=== PATIENT | male | born 1970 | race Caucasian/White ===

== ENCOUNTER → 2017-04-24 | Outpatient (CLI) | payer OTHER ==
--- NOTE | 2017-04-24 21:55 | MR ---
EXAMINATION TYPE: MR knee LT wo con DATE OF EXAM: 04/24/2017 COMPARISON: NONE HISTORY: Derangement, knee internal, Left per order. Left knee pain and swelling since slipping injur y April 20 per patient. TECHNIQUE: Multiplanar, multisequence images of the knee is performed without IV contrast. FINDINGS: MEDIAL MENISCUS: There is some globular increased signal anterior horn of medial meniscus does not ex tend to articular surface. More prominent, globular signal posterior horn of medial meniscus with hermann ncated appearance posteriorly is identified, signal extends to superior articular surface. In additio n there is complex vertical tear centrally seen best coronal image 24 with signal extending to superi or and inferior articular surfaces. Medial extrusion of medial meniscus is seen. LATERAL MENISCUS: Anterior and posterior horns are intact without tear. CRUCIATE LIGAMENTS: The anterior and posterior cruciate ligaments are intact. Some increased signal d istal ACL is seen with some fanning of fibers. COLLATERAL LIGAMENTS: The medial collateral ligament and lateral collateral ligament complex are inta ct. Mild surrounding fluid signal medial collateral ligament is present. EXTENSOR MECHANISM: Visualized quadriceps and patellar tendons are intact. EFFUSION: There is partial visualization of a large suprapatellar joint effusion. POPLITEAL CYST: There is a large popliteal/cabello cyst measuring roughly 6 cm on long axis. Some septa tions are present. Some ill-defined fluid extends inferiorly suggesting leak.. TRICOMPARTMENT SPACES: There is moderate tricompartment joint space loss. There is tibial condylar sp urring seen. CARTILAGE: There is thinning of articular cartilage posterior patellar pole. No full-thickness cartil aginous loss is seen. Articular cartilage tibiofemoral articulations fairly well-maintained. BONE MARROW SIGNAL: There is heterogeneous increased T2 signal anterior distal femoral condyle latera l aspect on sagittal image 14. There is mild increased T2 signal posterior medial tibial plateau seen near sagittal image 23 and coronal image 27. OTHER: Mild diffuse subcutaneous edema is present. This is most pronounced anteriorly. IMPRESSION: 1. Complex full-thickness tear posterior horn of medial meniscus extending to involve the central champ t as detailed above. 2. Intrasubstance tearing anterior horn of medial meniscus. 3. Mild MCL sprain. 4. Myxoid degeneration ACL. 5. Large suprapatellar joint effusion. 6. Large leaking popliteal cyst. 7. 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 8. Small areas of osseous contusion involving the posterior medial tibial plateau and medial aspect o f the central anterior distal femoral lateral epicondyle.
== END | disposition home or self-care (01) ==
LOC: RADMRIMAIN 17:53
PROVIDERS: ATTEND Preventive Medicine Occupational Medicine
DX: S83.242A Other tear of medial meniscus, current injury, left knee, initial encounter (principal); S83.412A Sprain of medial collateral ligament of left knee, initial encounter; M71.22 Synovial cyst of popliteal space [Baker], left knee; M22.42 Chondromalacia patellae, left knee

== ENCOUNTER 2018-04-14 10:53 | Inpatient (IN) | payer BC, OTHER ==
--- NOTE | 2018-04-14 12:06 | ED ---
Abdominal Pain HPI - General Chief Complaint: Abdominal Pain Stated Complaint: Abd Pain Time Seen by Provider: 04/14/18 11:45 Source: patient, RN notes reviewed Mode of arrival: ambulatory Limitations: no limitations - History of Present Illness Initial Comments: This is a 39-year-old male who states he had the onset 4 days ago of lower abdominal no and left lower quadrant pain he states that sharp in nature costal he has 3-4/10 severity EKG we'll spica. This developed a fever with some sweats he denies any dysuria hematuria he states he been taking a lot of Pepto- Bismol does have dark green stool. He has no prior history of abdominal surgeries hernia repair in the past. Family history is significant for his mother having gallbladder disease and a grandmother that had colon cancer in her 80s. No other modifying factors at this time. MD Complaint: abdominal pain - Related Data Home Medications Medication Instructions Recorded Confirmed Acetaminophen Tab [Tylenol Tab] 1,000 mg PO Q6HR PRN 04/14/18 04/14/18 Bismuth Subsalicylate [Kaopectate] 524 mg PO Q4H PRN 04/14/18 04/14/18 Allergies Allergy/AdvReac Type Severity Reaction Status Date / Time No Known Allergies Allergy Verified 04/14/18 12:28 Review of Systems ROS Statement: Those systems with pertinent positive or pertinent negative responses have been documented in the HPI. ROS Other: All systems not noted in ROS Statement are negative. Past Medical History Past Medical History: No Reported History History of Any Multi-Drug Resistant Organisms: None Reported Past Surgical History: Hernia Repair, Orthopedic Surgery Additional Past Surgical History / Comment(s): sinus Past Psychological History: No Psychological Hx Reported Smoking Status: Never smoker Past Alcohol Use History: Occasional Past Drug Use History: None Reported General Exam - General Exam Comments Initial Comments: This is a well-developed well-nourished awake alert oriented 3 male Limitations: no limitations General appearance: alert, in no apparent distress Head exam: Present: atraumatic, normocephalic, normal inspection Eye exam: Present: normal appearance, PERRL, EOMI. Absent: scleral icterus, conjunctival injection, periorbital swelling ENT exam: Present: normal exam, mucous membranes moist Neck exam: Present: normal inspection. Absent: tenderness, meningismus, lymphadenopathy Respiratory exam: Present: normal lung sounds bilaterally. Absent: respiratory distress, wheezes, rales, rhonchi, stridor Cardiovascular Exam: Present: regular rate, normal rhythm, normal heart sounds. Absent: systolic murmur, diastolic murmur, rubs, gallop, clicks GI/Abdominal exam: Present: soft, tenderness (Left lower quadrant and left suprapubic tenderness palpation no guarding rebound masses or bruits), normal bowel sounds. Absent: distended, guarding, rebound, rigid Rectal exam: Present: deferred Extremities exam: Present: normal inspection, full ROM, normal capillary refill. Absent: tenderness, pedal edema, joint swelling, calf tenderness Back exam: Present: normal inspection Neurological exam: Present: alert, oriented X3, CN II-XII intact Psychiatric exam: Present: normal affect, normal mood Skin exam: Present: warm, dry, intact, normal color. Absent: rash Course Vital Signs 04/14/18 04/14/18 11:01 15:06 Temperature 98.9 F Pulse Rate 90 84 Respiratory 20 16 Rate Blood Pressure 125/81 148/93 O2 Sat by Pulse 99 97 Oximetry Medical Decision Making - Medical Decision Making I did discuss findings with the patient he will be admitted for IV antibiotics and treatment of diverticulitis. Patient is in agreement with this. I did discuss case with Dr. Rodas - Lab Data Result diagrams: 04/14/18 12:16 04/14/18 12:16 Lab Results 04/14/18 04/14/18 04/14/18 Range/Units 12:16 12:16 12:16 WBC 10.4 (3.8-10.6) k/uL RBC 5.52 (4.30-5.90) m/uL Hgb 15.7 (13.0-17.5) gm/dL Hct 46.3 (39.0-53.0) % MCV 83.9 (80.0-100.0) fL MCH 28.5 (25.0-35.0) pg MCHC 34.0 (31.0-37.0) g/dL RDW 13.2 (11.5-15.5) % Plt Count 222 (150-450) k/uL Neutrophils % 74 % Lymphocytes % 12 % Monocytes % 10 % Eosinophils % 2 % Basophils % 1 % Neutrophils # 7.7 (1.3-7.7) k/uL Lymphocytes # 1.2 (1.0-4.8) k/uL Monocytes # 1.0 (0-1.0) k/uL Eosinophils # 0.2 (0-0.7) k/uL Basophils # 0.1 (0-0.2) k/uL PT (9.0-12.0) sec INR (<1.2) APTT (22.0-30.0) sec Sodium 136 L (137-145) mmol/L Potassium 4.5 (3.5-5.1) mmol/L Chloride 103 (98-107) mmol/L Carbon Dioxide 21 L (22-30) mmol/L Anion Gap 12 mmol/L BUN 12 (9-20) mg/dL Creatinine 0.74 (0.66-1.25) mg/dL Est GFR (CKD-EPI)AfAm >90 (>60 ml/min/1.73 sqM) Est GFR (CKD-EPI)NonAf >90 (>60 ml/min/1.73 sqM) Glucose 93 (74-99) mg/dL Calcium 9.1 (8.4-10.2) mg/dL Total Bilirubin 1.3 (0.2-1.3) mg/dL AST 20 (17-59) U/L ALT 29 (21-72) U/L Alkaline Phosphatase 64 (38-126) U/L Total Creatine Kinase (55-170) U/L CK-MB (CK-2) (0.0-2.4) ng/mL CK-MB (CK-2) Rel Index Troponin I (0.000-0.034) ng/mL Total Protein 6.7 (6.3-8.2) g/dL Albumin 3.9 (3.5-5.0) g/dL Amylase 50 (30-110) U/L Lipase 47 (23-300) U/L Urine Color Yellow Urine Appearance Clear (Clear) Urine pH 6.0 (5.0-8.0) Ur Specific [place] 1.007 (1.001-1.035) Urine Protein Negative (Negative) Urine Glucose (UA) Negative (Negative) Urine Ketones Negative (Negative) Urine Blood Negative (Negative) Urine Nitrite Negative (Negative) Urine Bilirubin Negative (Negative) Urine Urobilinogen <2.0 (<2.0) mg/dL Ur Leukocyte Esterase Trace H (Negative) Urine RBC <1 (0-5) /hpf Urine WBC 1 (0-5) /hpf Urine Mucus Rare H (None) /hpf 04/14/18 04/14/18 Range/Units 12:16 12:16 WBC (3.8-10.6) k/uL RBC (4.30-5.90) m/uL Hgb (13.0-17.5) gm/dL Hct (39.0-53.0) % MCV (80.0-100.0) fL MCH (25.0-35.0) pg MCHC (31.0-37.0) g/dL RDW (11.5-15.5) % Plt Count (150-450) k/uL Neutrophils % % Lymphocytes % % Monocytes % % Eosinophils % % Basophils % % Neutrophils # (1.3-7.7) k/uL Lymphocytes # (1.0-4.8) k/uL Monocytes # (0-1.0) k/uL Eosinophils # (0-0.7) k/uL Basophils # (0-0.2) k/uL PT 10.1 (9.0-12.0) sec INR 1.0 (<1.2) APTT 24.8 (22.0-30.0) sec Sodium (137-145) mmol/L Potassium (3.5-5.1) mmol/L Chloride (98-107) mmol/L Carbon Dioxide (22-30) mmol/L Anion Gap mmol/L BUN (9-20) mg/dL Creatinine (0.66-1.25) mg/dL Est GFR (CKD-EPI)AfAm (>60 ml/min/1.73 sqM) Est GFR (CKD-EPI)NonAf (>60 ml/min/1.73 sqM) Glucose (74-99) mg/dL Calcium (8.4-10.2) mg/dL Total Bilirubin (0.2-1.3) mg/dL AST (17-59) U/L ALT (21-72) U/L Alkaline Phosphatase (38-126) U/L Total Creatine Kinase 73 (55-170) U/L CK-MB (CK-2) 0.4 (0.0-2.4) ng/mL CK-MB (CK-2) Rel Index 0.5 Troponin I <0.012 (0.000-0.034) ng/mL Total Protein (6.3-8.2) g/dL Albumin (3.5-5.0) g/dL Amylase (30-110) U/L Lipase (23-300) U/L Urine Color Urine Appearance (Clear) Urine pH (5.0-8.0) Ur Specific [place] (1.001-1.035) Urine Protein (Negative) Urine Glucose (UA) (Negative) Urine Ketones (Negative) Urine Blood (Negative) Urine Nitrite (Negative) Urine Bilirubin (Negative) Urine Urobilinogen (<2.0) mg/dL Ur Leukocyte Esterase (Negative) Urine RBC (0-5) /hpf Urine WBC (0-5) /hpf Urine Mucus (None) /hpf - Radiology Data Radiology results: report reviewed (I did review the imaging and report is evidence of acute diverticulitis with moderate inflammation without abscess. There is the possibility of inflammatory colon cancer as per the radiology report.), image reviewed Disposition Clinical Impression: Acute diverticulitis, Abdominal pain Disposition: ADMITTED IP TO THIS [facility] Condition: Stable Referrals: Hayden Rodas MD [Primary Care Provider] - 1-2 days
[2018-04-14 12:31] LABS: Basophils # (A) 0.1 k/uL (0-0.2); Basophils % (A) 1 %; Eosinophils # (A) 0.2 k/uL (0-0.7); Eosinophils % (A) 2 %; HCT 46.3 % (39.0-53.0); HGB 15.7 gm/dL (13.0-17.5); Lymphocytes # (A) 1.2 k/uL (1.0-4.8); Lymphocytes % (A) 12 %; MCH 28.5 pg (25.0-35.0); MCV 83.9 fL (80.0-100.0); Mean Platelet Volume 6.3; Monocytes % (A) 10 %; Neutrophils # (A) 7.7 k/uL (1.3-7.7); Neutrophils % (A) 74 %; Platelet Count 222 k/uL (150-450); RBC 5.52 m/uL (4.30-5.90); RDW 13.2 % (11.5-15.5); WBC 10.4 k/uL (3.8-10.6)
[2018-04-14 12:40] LABS: Appearance,Urine Clear (Clear); Bilirubin,Urine Negative (Negative); Blood,Urine Negative (Negative); Color,Urine Yellow; Glucose,Urine (UA) Negative (Negative); Ketones,Urine Negative (Negative); Leukocyte Esterase,Urine Trace (Negative); Mucus,Urine Rare /hpf; Nitrite,Urine Negative (Negative); Protein,Urine Negative (Negative); RBC,Urine <1 /hpf (0-5); Specific Gravity,Urine 1.007 (1.001-1.035); Urobilinogen,Urine <2.0 mg/dL (<2.0); WBC,Urine 1 /hpf (0-5)
[2018-04-14 12:41] LABS: Partial Thromboplastin Time 24.8 sec (22.0-30.0); Prothrombin Time 10.1 sec (9.0-12.0)
[2018-04-14 12:47] LABS: ALT 29 U/L (21-72); AST 20 U/L (17-59); Albumin 3.9 g/dL (3.5-5.0); Alkaline Phosphatase 64 U/L (38-126); Amylase 50 U/L (30-110); Anion Gap 12 mmol/L; Blood Urea Nitrogen 12 mg/dL (9-20); Calcium 9.1 mg/dL (8.4-10.2); Carbon Dioxide 21 mmol/L (22-30); Chloride 103 mmol/L (98-107); Glucose 93 mg/dL (74-99); Lipase 47 U/L (23-300); Potassium 4.5 mmol/L (3.5-5.1); Sodium 136 mmol/L (137-145); Total Bilirubin 1.3 mg/dL (0.2-1.3); Total Protein 6.7 g/dL (6.3-8.2)
[2018-04-14 12:49] LABS: Creatine Kinase 73 U/L (55-170)
[2018-04-14 13:02] LABS: Creatine Kinase MB 0.4 ng/mL (0.0-2.4); Troponin I <0.012 ng/mL (0.000-0.034)
--- NOTE | 2018-04-14 14:18 | CT ---
EXAMINATION TYPE: CT abdomen pelvis w con DATE OF EXAM: 04/14/2018 COMPARISON: 04/17/2013 HISTORY: 47-year-old male LLQ pain, fever TECHNIQUE: Contiguous axial scanning of the abdomen and pelvis following administration of 100 ml Omn ipaque 300 IV contrast. Delayed images through the kidneys and coronal/sagittal reconstructions perf ormed. CT DLP: 2249.1 mGycm Automated exposure control for dose reduction was used. FINDINGS: Heart is normal size without pericardial effusion. Some mild dependent atelectasis posterior lung bas es. No pleural effusion. Small hiatal hernia. Liver upper limits of normal in size at 17.2 cm. Scattered subcentimeter hypodensities too small frac tured CT characterization, probably small cysts. Portal venous system is patent. No biliary ductal dilatation. Gallbladder, adrenal glands, kidneys, and pancreas show no gross abnormal mobility. No dilated small bowel, free fluid, or free air. The appendix is not clearly identified. Distal ileum loops adjacent to and abuts the cecum. Mild stool burden. There is sigmoid diverticulosis. Moderate wall thickening with moderate surrounding inflammatory fat stranding and tracking edema along the pro ximal to mid sigmoid. Some borderline sized retroperitoneal lymph nodes are unchanged from 2013. Mild degenerative changes at the hips. Degenerative changes lower lumbar spine. Endplate spondylosis lower thoracic spine. No osseous destructive process. Bladder distended. Phleboliths in the pelvis. No abnormal fluid collection in the pelvis or pelvic ly mphadenopathy. IMPRESSION: ACUTE DIVERTICULITIS AT THE LEVEL OF THE MID SIGMOID COLON. THERE IS MODERATE ASSOCIATED INFLAMMATION WITHOUT ABSCESS OR FREE AIR. RECOMMEND DIRECT VISUALIZATION AFTER SUCCESSFUL TREATMENT TO EXCLUDE TH E POSSIBILITY OF AN INFLAMMATORY COLON CANCER.
[2018-04-14] MEDS ORDERED: PIPERACILLIN-TAZOBACTAM 3.375 GM in DEXTROSE/WATER 1 50ML.BAG IVPB STA (15:52)
[2018-04-14] MEDS ORDERED: KETOROLAC 30 MG/ML 1 ML VIAL IVP PRN (15:55)
[2018-04-14] MEDS ORDERED: NALOXONE 0.4 MG/ML 1 ML VIAL IV PRN (15:55)
[2018-04-14] MEDS ORDERED: ACETAMINOPHEN TAB 325 MG TAB PO PRN (16:29)
[2018-04-14] MEDS ORDERED: ONDANSETRON 4 MG/2 ML VIAL IVP PRN (16:30)
[2018-04-14] MEDS: SODIUM CHLORIDE 0.9% 1,000 ML IV SCH (16:35)
[2018-04-14 17:42] VITALS: BMI 35.3
[2018-04-15] MEDS: SODIUM CHLORIDE 0.9% 1,000 ML IV SCH ×2 (05:06→18:27)
[2018-04-15] MEDS: PIPERACILLIN-TAZOBACTAM 3.375 GM in DEXTROSE/WATER 1 50ML.BAG IVPB SCH ×3 (05:06→18:28)
[2018-04-15 07:17] LABS: Basophils % (A) 1 %; Eosinophils # (A) 0.1 k/uL (0-0.7); Eosinophils % (A) 1 %; HCT 43.3 % (39.0-53.0); Lymphocytes # (A) 1.2 k/uL (1.0-4.8); Lymphocytes % (A) 16 %; MCH 29.2 pg (25.0-35.0); MCHC 34.6 g/dL (31.0-37.0); MCV 84.3 fL (80.0-100.0); Mean Platelet Volume 6.2; Monocytes # (A) 0.7 k/uL (0-1.0); Monocytes % (A) 10 %; Neutrophils # (A) 5.3 k/uL (1.3-7.7); Neutrophils % (A) 71 %; Platelet Count 226 k/uL (150-450); RBC 5.13 m/uL (4.30-5.90); RDW 12.6 % (11.5-15.5); WBC 7.5 k/uL (3.8-10.6)
[2018-04-15] MEDS ORDERED: PANTOPRAZOLE 40 MG/10 ML VIAL IV SCH (09:00)
[2018-04-15 11:25] VITALS: RESP 16
--- NOTE | 2018-04-15 13:08 | P.HPIM ---
History of Present Illness H&P Date: 04/15/18 Chief Complaint: Abdominal pain 47-year-old male who presented to the emergency room with a chief complaint of abdominal pain and fever. The patient reports he initially began having left lower quadrant abdominal pain on Thursday. He states the pain was intermittent but it became so bad yesterday that he yelled for his to bring him to the emergency room. He also reports waking up "drenched in sweat" and believes he was febrile but states he did not take his temperature at home. He reports nausea but denied any episodes of emesis. He denies any constipation. He reports his stools have been loose. He states he has been taking a lot of Pepto-Bismol for his abdominal pain and his stools have been dark green but denies any blood in his stools. The patient underwent a CAT scan of the abdomen and pelvis which revealed acute diverticulitis at the level of the mid sigmoid colon. There is moderate associated inflammation without abscess or free air. Recommend direct visualization after successful treatment to exclude the possibility of an inflammatory colon cancer. The patient states he has never had diverticulitis before. He does report an episode of abdominal pain greater than 5 years ago in which he underwent a colonoscopy. He relates that it was normal and he was diagnosed with a "spastic colon". The patient denies any pertinent medical history. He has a surgical history of a hernia repair and orthopedic surgeries including his shoulder knee and left foot. He is a nonsmoker. He is obese with a BMI of 35.3. Laboratory data: WBC 10.4. Hemoglobin 15.7. Platelet count 222. Sodium 136. Potassium 4.5. BUN 12. Creatinine 0.74. Glucose 93. LFTs within normal limits. Troponin negative 1. Pancreatic enzymes within normal limits. Urinalysis was completed revealing trace leukocyte esterase but was otherwise unremarkable. The patient was started on IV antibiotics in the form of Zosyn and IV fluids and was admitted to the hospital under the care of Dr. Rodas. Review of Systems Those systems with pertinent positive or pertinent negative responses have been documented in the HPI Past Medical History Past Medical History: No Reported History History of Any Multi-Drug Resistant Organisms: None Reported Past Surgical History: Hernia Repair, Orthopedic Surgery Additional Past Surgical History / Comment(s): sinus, SHOULDERS, KNEES LEFT FOOT , SURGERIES Past Psychological History: No Psychological Hx Reported Smoking Status: Never smoker Past Alcohol Use History: Occasional Past Drug Use History: None Reported Medications and Allergies Home Medications Medication Instructions Recorded Confirmed Type Levofloxacin [Levaquin] 750 mg PO DAILY #10 tab 04/15/18 Rx metroNIDAZOLE [Flagyl] 500 mg PO TID #30 tab 04/15/18 Rx Allergies Allergy/AdvReac Type Severity Reaction Status Date / Time No Known Allergies Allergy Verified 04/14/18 12:28 Physical Exam Vitals: Vital Signs Temp Pulse Pulse Resp BP BP Pulse Ox 04/14/18 19:07 97.3 F L 80 17 132/84 94 L 04/14/18 17:26 99.2 F 84 16 136/87 95 04/14/18 16:38 98.2 F 85 15 136/96 98 04/14/18 15:06 84 16 148/93 97 04/14/18 11:01 98.9 F 90 20 125/81 99 Intake and Output 04/14/18 04/15/18 04/15/18 22:59 06:59 14:59 Intake Total 400 600 Balance 400 600 Intake: Oral 400 600 Other: # Voids 1 Weight 124.738 kg GENERAL: This is a 47-year-old male in no apparent distress at the time of examination. Pleasant and cooperative. HEENT: Head is atraumatic, normocephalic. Pupils are equal, round, and reactive to light. Sclerae anicteric. Conjunctivae are clear. Mucus membranes of the mouth are moist. Neck is supple. RESPIRATORY: Clear to ausculation. No wheezes, rales, or rhonchi. No use of accessory muscles. Patient maintaining oxygen saturation greater than 92%. No chest wall tenderness is noted on palpation or with deep breathing. CARDIOVASCULAR: Regular rate and rhythm. S1 and S2 noted. No systolic or diastolic murmur auscultated. No JVD noted. No S3 or S4 noted. GASTROINTESTINAL: No distention noted. Abdomen soft and round. Hyperactive bowel sounds auscultated x 4 quadrants. No pain or tenderness noted upon palpation. INTEGUMENTARY: No cyanosis. No jaundice. No rashes noted. No cellulitis noted. EXTREMITIES: 2+ peripheral pulses. No evidence of peripheral edema. No calf tenderness noted. NEUROLOGIC: Cranial nerves II-XII intact. PSYCHIATRIC: Awake, alert, and oriented X 3. Appropriate affect. Intact judgement and insight. Results CBC & Chem 7: 04/15/18 06:20 04/14/18 12:16 Labs: Abnormal Lab Results - Last 24 Hours (Table) 04/14/18 04/14/18 Range/Units 12:16 12:16 Sodium 136 L (137-145) mmol/L Carbon Dioxide 21 L (22-30) mmol/L Ur Leukocyte Esterase Trace H (Negative) Urine Mucus Rare H (None) /hpf Thrombosis Risk Factor Assmnt - Choose All That Apply Any of the Below Risk Factors Present?: Yes Each Factor Represents 1 point: Age 41-60 years, Obesity (BMI >25) Other Risk Factors: No Other congenital or acquired thrombophilia - If yes, enter type in comment: No Thrombosis Risk Factor Assessment Total Risk Factor Score: 2 Thrombosis Risk Factor Assessment Level: Low Risk Assessment and Plan Plan: ASSESSMENT: Acute diverticulitis of sigmoid colon Abdominal pain and nausea x 4 days, secondary to above Obesity: BMI 35.3 PLAN: Continue IV antibiotics. Dr. Tesfaye on consult. Await further recommendations. If patient is cleared for discharge by Dr. Tesfaye, patient may have his diet advanced to full liquid. If patient tolerates, he may be discharged home this afternoon on Levaquin and Flagyl per Dr. Rodas. Nurse practitioner note has been reviewed by physician. Signing provider agrees with the documented findings, assessment, and plan of care.
--- NOTE | 2018-04-15 14:31 | P.DS ---
Providers Date of admission: 04/14/18 15:58 Expected date of discharge: 04/15/18 Attending physician: Hayden Rodas Consults: 04/14/18 16:28 Consult Physician Routine Consulting Provider: Jean-Paul Tesfaye Consult Reason/Comments: abdominal pain, diverticulitis Do you want consulting provider notified?: Yes Primary care physician: Hayden [facility] Course: 47-year-old male who presented to the emergency room with a chief complaint of abdominal pain and fever. The patient reports he initially began having left lower quadrant abdominal pain on Thursday. He states the pain was intermittent but it became so bad yesterday that he yelled for his to bring him to the emergency room. He also reports waking up "drenched in sweat" and believes he was febrile but states he did not take his temperature at home. He reports nausea but denied any episodes of emesis. He denies any constipation. He reports his stools have been loose. He states he has been taking a lot of Pepto-Bismol for his abdominal pain and his stools have been dark green but denies any blood in his stools. The patient underwent a CAT scan of the abdomen and pelvis which revealed acute diverticulitis at the level of the mid sigmoid colon. There is moderate associated inflammation without abscess or free air. Recommend direct visualization after successful treatment to exclude the possibility of an inflammatory colon cancer. The patient states he has never had diverticulitis before. He does report an episode of abdominal pain greater than 5 years ago in which he underwent a colonoscopy. He relates that it was normal and he was diagnosed with a "spastic colon". The patient denies any pertinent medical history. He has a surgical history of a hernia repair and orthopedic surgeries including his shoulder knee and left foot. He is a nonsmoker. He is obese with a BMI of 35.3. Laboratory data: WBC 10.4. Hemoglobin 15.7. Platelet count 222. Sodium 136. Potassium 4.5. BUN 12. Creatinine 0.74. Glucose 93. LFTs within normal limits. Troponin negative 1. Pancreatic enzymes within normal limits. Urinalysis was completed revealing trace leukocyte esterase but was otherwise unremarkable. The patient was started on IV antibiotics in the form of Zosyn and IV fluids and was admitted to the hospital under the care of Dr. Rodas. The patient was seen and evaluated by Dr. Tesfaye. The patient is to schedule a colonoscopy in approximately 8 weeks after acute diverticulitis has resolved. The patient's diet has been advanced as tolerated. He was deemed stable for discharge. He is to follow up on an outpatient basis with Dr. Rodas and Dr. Tesfaye. He was prescribed a 10 day course of Levaquin and Flagyl at the time of discharge. DISCHARGE DIAGNOSIS: Acute diverticulitis of sigmoid colon Abdominal pain and nausea x 4 days, secondary to above Obesity: BMI 35.3 Nurse practitioner note has been reviewed by physician. Signing provider agrees with the documented findings, assessment, and plan of care. Patient Condition at Discharge: Stable Plan - Discharge Summary Discharge Rx Participant: Yes New Discharge Prescriptions: New Levofloxacin [Levaquin] 750 mg PO DAILY #10 tab metroNIDAZOLE [Flagyl] 500 mg PO TID #30 tab Discontinued Acetaminophen Tab [Tylenol Tab] 1,000 mg PO Q6HR PRN PRN Reason: PAIN/FEVER Bismuth Subsalicylate [Kaopectate] 524 mg PO Q4H PRN PRN Reason: Diarrhea Discharge Medication List Levofloxacin [Levaquin] 750 mg PO DAILY #10 tab 04/15/18 [Rx] metroNIDAZOLE [Flagyl] 500 mg PO TID #30 tab 04/15/18 [Rx] Follow up Appointment(s)/Referral(s): Jean-Paul Tesfaye MD [Medical Doctor] - 06/16/18 (CALL OFFICE TO SCHEDULE COLONOSCOPY FOR 8 WEEKS.) Hayden Rodas MD [Primary Care Provider] - 04/26/18 2:45 pm Patient Instructions/Handouts: Diverticulitis (DC), Low Fiber Diet (DC), Diverticulitis Diet (GEN) Discharge Disposition: HOME SELF-CARE
[2018-04-15 15:05] VITALS: BP 143/91; PULSE 74; TEMP 98.4
--- NOTE | 2018-04-15 15:30 | P.GSCN ---
History of Present Illness Consult date: 04/15/18 Reason for Consult: Diverticulitis History of present illness: 47-year-old male presents with complaints of left lower quadrant pain since Thursday. Pain increasing. Some nausea. He felt feverish. Came to the hospital for evaluation. Computed tomography scan showed acute diverticulitis. No history of similar events. He did have a normal colonoscopy 10 years ago. Denies rectal bleeding or melena. No family history of colon cancer. Review of Systems The patient denies any acute changes in vision or hearing, no dysphagia or odynophagia, no chest pain or shortness of breath, no dysuria or hematuria, no headache, no runny nose, no rectal bleeding or melena, no unexplained weight loss Past Medical History Past Medical History: No Reported History History of Any Multi-Drug Resistant Organisms: None Reported Past Surgical History: Hernia Repair, Orthopedic Surgery Additional Past Surgical History / Comment(s): sinus, SHOULDERS, KNEES LEFT FOOT , SURGERIES Past Psychological History: No Psychological Hx Reported Smoking Status: Never smoker Past Alcohol Use History: Occasional Past Drug Use History: None Reported Medications and Allergies Home Medications Medication Instructions Recorded Confirmed Type Levofloxacin [Levaquin] 750 mg PO DAILY #10 tab 04/15/18 Rx metroNIDAZOLE [Flagyl] 500 mg PO TID #30 tab 04/15/18 Rx Allergies Allergy/AdvReac Type Severity Reaction Status Date / Time No Known Allergies Allergy Verified 04/14/18 12:28 Surgical - Exam Vital Signs Temp Pulse Resp BP Pulse Ox 98.9 F 90 20 125/81 99 04/14/18 11:01 04/14/18 11:01 04/14/18 11:01 04/14/18 11:01 04/14/18 11:01 Physical exam: General: Well-developed, well-nourished HEENT: Normocephalic, sclerae nonicteric Abdomen: Nontender, nondistended Extremities: No edema Neuro: Alert and oriented Results - Labs 04/15/18 06:20 04/14/18 12:16 Assessment and Plan (1) Acute diverticulitis Narrative/Plan: Patient doing better at this time. Stable for discharge from my standpoint. Continue antibiotics postdischarge. Current Visit: Yes Status: Acute Code(s): K57.92 - DVTRCLI OF INTEST, PART UNSP, W/O PERF OR ABSCESS W/O BLEED SNOMED Code(s): 087598252
== END 2018-04-15 20:01 | disposition home or self-care (01) | DRG 392 ==
LOC: EC 10:53 → 3SUR 15:58
PROVIDERS: ADMIT Family Medicine; ATTEND Family Medicine
DX: K57.32 Diverticulitis of large intestine without perforation or abscess without bleeding (principal); E66.9 Obesity, unspecified; K58.9 Irritable bowel syndrome, unspecified; Z68.35 Body mass index [BMI] 35.0-35.9, adult; Z79.899 Other long term (current) drug therapy; Z80.0 Family history of malignant neoplasm of digestive organs; Z83.79 Family history of other diseases of the digestive system
CPT/HCPCS: 36415; 74177; 80053; 81001; 82150; 82550; 82553; 83690; 84484; 85025; 85610; 85730; 96365; 96375; 99285

== ENCOUNTER 2018-06-18 11:03 | Day surgery (SDC) | payer BC ==
[2018-06-16 15:18] VITALS: BMI 34.7
[~2018-06-18 11:03] MED LIST: LACTATED RINGERS 1,000 ML IV SCH; LIDOCAINE 1% 20 ML VIAL (10MG/ML) FOR IV START INTRADERMA PRN
[2018-06-18 11:26] VITALS: RESP 16; TEMP 98.2
--- NOTE | 2018-06-18 12:31 | P.GSHP ---
History of Present Illness H&P Date: 06/18/18 Chief Complaint: Change in bowel habits 47-year-old female known to our service. Hospitalized in March with diverticulitis. No previous colon cancer. No family history of colon cancer. Pain has resolved. Mild constipation at times. Denies rectal bleeding. Past Medical History Past Medical History: No Reported History Additional Past Medical History / Comment(s): DIVERTICULITIS History of Any Multi-Drug Resistant Organisms: None Reported Past Surgical History: Hernia Repair, Orthopedic Surgery Additional Past Surgical History / Comment(s): ,sinus, SHOULDER SX, KNEES SX, LEFT FOOT, Past Anesthesia/Blood Transfusion Reactions: Postoperative Nausea & Vomiting ( PONV) Smoking Status: Never smoker - Past Family History Mother Family Medical History: No Reported History Medications and Allergies Home Medications Medication Instructions Recorded Confirmed Type No Known Home Medications 06/16/18 06/18/18 History Allergies Allergy/AdvReac Type Severity Reaction Status Date / Time No Known Allergies Allergy Verified 06/18/18 11:28 Surgical - Exam Vital Signs Temp Pulse Resp BP Pulse Ox 98.2 F 83 16 154/100 97 06/18/18 11:25 06/18/18 11:25 06/18/18 11:25 06/18/18 11:25 06/18/18 11:25 Physical exam: General: Well-developed, well-nourished HEENT: Normocephalic, sclerae nonicteric Abdomen: Nontender, nondistended Extremities: No edema Neuro: Alert and oriented Assessment and Plan (1) Change in bowel habits Narrative/Plan: Will proceed with colonoscopy at this time. Current Visit: Yes Status: Acute Code(s): R19.4 - CHANGE IN BOWEL HABIT SNOMED Code(s): 832493300
[2018-06-18] MEDS ORDERED: PROPOFOL 10 MG/ML 20 ML VIAL IV ONE (12:33)
[2018-06-18] MEDS ORDERED: LIDOCAINE 1% INJ 10MG/ML (20 ML MDV) ONE (12:33)
[2018-06-18] MEDS ORDERED: NALOXONE 0.4 MG/ML 1 ML VIAL IV PRN (12:49)
--- NOTE | 2018-06-18 12:51 | P.PCN ---
Date of Procedure: 06/18/18 Procedure(s) Performed: PREOPERATIVE DIAGNOSIS: Change in bowel habits POSTOPERATIVE DIAGNOSIS: Diverticulosis PROCEDURE: Colonoscopy ANESTHESIA: MAC SURGEON: Jean-Paul Tesfaye M.D. SPECIMENS: None ENDOSCOPIC PROCEDURE: The patient was placed on the endoscopy table in the left decubitus position. The Olympus colonoscope was inserted into the anus and passed under direct visualization to the base of the cecum. The appendiceal orifice was visualized. From that point the scope was slowly withdrawn inspecting all surfaces carefully. There were no neoplastic inflammatory or polypoid lesions throughout the cecum, ascending, transverse, descending, sigmoid and rectum. There was moderate diverticulosis noted throughout the colon increased in the left side. There is some mild inflammatory changes around a few of the diverticulum in the sigmoid colon. Was likely the site of recent diverticulitis. Digital rectal examination was normal. The patient was taken to the recovery room in stable condition per anesthesia guidelines. RECOMMENDATIONS: Increase fiber. Follow-up colonoscopy in 10 years.
[2018-06-18 13:10] VITALS: BP 147/89; PULSE 95
== END 2018-06-18 13:29 | disposition home or self-care (01) ==
LOC: ORWHC2ENDO 11:03
PROVIDERS: ATTEND Surgery
DX: K57.30 Diverticulosis of large intestine without perforation or abscess without bleeding (principal)
CPT/HCPCS: 45378; J2001; J2704

== ENCOUNTER 2019-04-29 20:14 | Emergency (ER) | payer BC ==
[2019-04-29 20:27] VITALS: RESP 18
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
[2019-04-29 21:58] VITALS: BP 121/95; PULSE 86; TEMP 97.8
== END 2019-04-29 21:58 | disposition home or self-care (01) ==
LOC: EC 20:14
DX: T22.111A Burn of first degree of right forearm, initial encounter (principal); T23.111A Burn of first degree of right thumb (nail), initial encounter; T23.161A Burn of first degree of back of right hand, initial encounter; X16.XXXA Contact with hot heating appliances, radiators and pipes, initial encounter; Y93.89 Activity, other specified; Y92.219 Unspecified school as the place of occurrence of the external cause
CPT/HCPCS: 16000; 99283

== ENCOUNTER → 2021-11-08 | Outpatient (CLI) | payer BC ==
--- NOTE | 2021-11-08 14:43 | US ---
EXAMINATION TYPE: US venous doppler duplex LE RT DATE OF EXAM: 11/08/2021 2:33 PM COMPARISON: NONE CLINICAL HISTORY: R60.0 LEG EDEMA. SIDE PERFORMED: Right TECHNIQUE: The lower extremity deep venous system is examined utilizing real time linear array sonog breanna with graded compression, doppler sonography and color-flow sonography. VESSELS IMAGED: Common Femoral Vein Deep Femoral Vein Greater Saphenous Vein * Femoral Vein Popliteal Vein Small Saphenous Vein * Proximal Calf Veins (* superficial vessels) Right Leg: Negative for DVT Probable Beckman's cyst measuring 3.2 x 1.5 x 2.0cm IMPRESSION: No evidence for DVT at this time.
== END | disposition home or self-care (01) ==
LOC: RADUSWWP 14:02
PROVIDERS: ATTEND Family Medicine
DX: R60.0 Localized edema (principal)

== ENCOUNTER 2021-12-05 05:58 | Emergency (ER) | payer BC ==
[2021-12-05 06:04] VITALS: RESP 18
[2021-12-05] MEDS ORDERED: ONDANSETRON 4 MG/2 ML VIAL IVP STA (06:36)
[2021-12-05] MEDS ORDERED: SODIUM CHLORIDE 0.9% 1,000 ML IV STA (06:36)
[2021-12-05] MEDS ORDERED: HYDROmorphone 0.5 MG/0.5 ML SYRINGE IVP STA ×2 (06:36→08:04)
--- NOTE | 2021-12-05 06:40 | ED ---
General Adult HPI - General Chief complaint: Abdominal Pain Stated complaint: Abdominal Pain Time Seen by Provider: 12/05/21 06:30 Source: patient, RN notes reviewed, old records reviewed Mode of arrival: ambulatory - History of Present Illness Initial comments: Well-appearing 51-year-old male, ambulatory with steady gait complaining of left lower abdominal and groin pain for the past 2 days. He states he has a history of diverticulitis and was started on antibiotics by his primary care doctor yesterday. He states that the pain has increased and he is nauseated but denies any vomiting or diarrhea. He denies any fevers. -: days(s) (2) Location: abdomen, left (lower) Severity scale (1-10): 10 Quality: constant Consistency: constant Associated Symptoms: nausea/vomiting (no vomiting) Treatments Prior to Arrival: other (antibiotics for diverticulitis) - Related Data Home Medications Medication Instructions Recorded Confirmed Ciprofloxacin HCl 500 mg PO Q12H 12/05/21 12/05/21 metroNIDAZOLE [Flagyl] 500 mg PO TID 12/05/21 12/05/21 traMADol HCL [Ultram] 50 - 100 mg PO Q6H PRN 12/05/21 12/05/21 Allergies Allergy/AdvReac Type Severity Reaction Status Date / Time No Known Allergies Allergy Verified 12/05/21 07:34 Review of Systems ROS Statement: Those systems with pertinent positive or pertinent negative responses have been documented in the HPI. ROS Other: All systems not noted in ROS Statement are negative. Past Medical History Past Medical History: No Reported History Additional Past Medical History / Comment(s): DIVERTICULITIS History of Any Multi-Drug Resistant Organisms: None Reported Past Surgical History: Hernia Repair, Orthopedic Surgery Additional Past Surgical History / Comment(s): ,sinus, SHOULDER SX, KNEES SX, LEFT FOOT, Past Anesthesia/Blood Transfusion Reactions: Postoperative Nausea & Vomiting (PONV) Past Psychological History: No Psychological Hx Reported Smoking Status: Never smoker Past Alcohol Use History: Occasional Past Drug Use History: None Reported - Past Family History Mother Family Medical History: No Reported History General Exam General appearance: alert, in no apparent distress Eye exam: Present: normal appearance ENT exam: Present: normal exam, normal oropharynx, mucous membranes moist Respiratory exam: Present: normal lung sounds bilaterally. Absent: respiratory distress, accessory muscle use Cardiovascular Exam: Present: regular rate, normal rhythm GI/Abdominal exam: Present: soft, distended, tenderness (Left lower). Absent: guarding, rebound, rigid, mass, hernia Back exam: Present: normal inspection. Absent: tenderness, CVA tenderness (R), CVA tenderness (L), rash noted Neurological exam: Present: alert, oriented X3, normal gait Psychiatric exam: Present: normal affect, normal mood Skin exam: Present: warm, dry, normal color. Absent: cyanosis, diaphoretic, pallor Course Vital Signs 12/05/21 12/05/21 12/05/21 05:59 09:00 09:59 Temperature 98.5 F 98.4 F Pulse Rate 99 75 77 Respiratory 18 18 18 Rate Blood Pressure 155/98 142/98 148/101 O2 Sat by Pulse 95 96 97 Oximetry - Reevaluation(s) Reevaluation #1: 12/05/21 08:05 Patient states he has minimal pain relief with the Dilaudid. There is no evidence of leukocytosis. Case discussed with Dr. Bolanos, CT was ordered. Time: 08:05 Reevaluation #2: 12/05/21 09:44 I did speak with Dr. Flores who reviewed the CAT scan, states that patient can be discharged to follow up with her in the office on Thursday. Time: 09:44 EKG Findings - EKG Results: EKG: sinus rhythm (Ventricular rate of 60, DC interval 0.159, QRS 0.100, QTC 0.408; no old EKG to compare) Medical Decision Making - Medical Decision Making 51-year-old male presents with 2 days of left lower quadrant abdominal pain and left groin pain. Was seen by his primary care doctor and was placed on antibiotics for diverticulitis yesterday , however he continues to have pain. CBC and electrolytes are unremarkable. CT the abdomen shows a left inguinal hernia increased from prior study with sigmoid colon extending into hernia. There is no evidence of bowel obstruction. There is mild stranding that could reflect diminished vascular flow or ischemia consistent with patient's symptoms. I did speak with Dr. Martin who recommends patient follow up with her in the office next week Thursday to schedule hernia repair surgery. I discussed the CT findings with the patient and advised him that he needs hernia repair surgery and was given referral to Dr. Martin. He was also instructed to return to the emergency room if he is unable to have a bowel movement or pass gas rectally or increasing pain or fevers. Patient is agreeable to this plan of care. - Lab Data Result diagrams: 12/05/21 06:55 12/05/21 06:55 Lab Results 12/05/21 12/05/21 12/05/21 Range/Units 06:55 06:55 06:55 WBC 8.2 (3.8-10.6) k/uL RBC 5.77 (4.30-5.90) m/uL Hgb 16.6 (13.0-17.5) gm/dL Hct 49.7 (39.0-53.0) % MCV 86.2 (80.0-100.0) fL MCH 28.7 (25.0-35.0) pg MCHC 33.3 (31.0-37.0) g/dL RDW 12.8 (11.5-15.5) % Plt Count 255 (150-450) k/uL MPV 7.3 Neutrophils % 75 % Lymphocytes % 14 % Monocytes % 6 % Eosinophils % 2 % Basophils % 1 % Neutrophils # 6.1 (1.3-7.7) k/uL Lymphocytes # 1.2 (1.0-4.8) k/uL Monocytes # 0.5 (0-1.0) k/uL Eosinophils # 0.2 (0-0.7) k/uL Basophils # 0.1 (0-0.2) k/uL Sodium 136 L (137-145) mmol/L Potassium 4.2 (3.5-5.1) mmol/L Chloride 107 (98-107) mmol/L Carbon Dioxide 22 (22-30) mmol/L Anion Gap 7 mmol/L BUN 16 (9-20) mg/dL Creatinine 0.84 (0.66-1.25) mg/dL Est GFR (CKD-EPI)AfAm >90 (>60 ml/min/1.73 sqM) Est GFR (CKD-EPI)NonAf >90 (>60 ml/min/1.73 sqM) Glucose 154 H (74-99) mg/dL Plasma Lactic Acid Karlo 1.0 (0.7-2.0) mmol/L Calcium 8.5 (8.4-10.2) mg/dL Total Bilirubin 0.9 (0.2-1.3) mg/dL AST 23 (17-59) U/L ALT 28 (4-49) U/L Alkaline Phosphatase 70 (38-126) U/L Total Protein 7.1 (6.3-8.2) g/dL Albumin 4.0 (3.5-5.0) g/dL Amylase 64 (30-110) U/L Lipase 81 (23-300) U/L Urine Color Urine Appearance (Clear) Urine pH (5.0-8.0) Ur Specific Logan (1.001-1.035) Urine Protein (Negative) Urine Glucose (UA) (Negative) Urine Ketones (Negative) Urine Blood (Negative) Urine Nitrite (Negative) Urine Bilirubin (Negative) Urine Urobilinogen (<2.0) mg/dL Ur Leukocyte Esterase (Negative) 12/05/21 Range/Units 09:00 WBC (3.8-10.6) k/uL RBC (4.30-5.90) m/uL Hgb (13.0-17.5) gm/dL Hct (39.0-53.0) % MCV (80.0-100.0) fL MCH (25.0-35.0) pg MCHC (31.0-37.0) g/dL RDW (11.5-15.5) % Plt Count (150-450) k/uL MPV Neutrophils % % Lymphocytes % % Monocytes % % Eosinophils % % Basophils % % Neutrophils # (1.3-7.7) k/uL Lymphocytes # (1.0-4.8) k/uL Monocytes # (0-1.0) k/uL Eosinophils # (0-0.7) k/uL Basophils # (0-0.2) k/uL Sodium (137-145) mmol/L Potassium (3.5-5.1) mmol/L Chloride (98-107) mmol/L Carbon Dioxide (22-30) mmol/L Anion Gap mmol/L BUN (9-20) mg/dL Creatinine (0.66-1.25) mg/dL Est GFR (CKD-EPI)AfAm (>60 ml/min/1.73 sqM) Est GFR (CKD-EPI)NonAf (>60 ml/min/1.73 sqM) Glucose (74-99) mg/dL Plasma Lactic Acid Karlo (0.7-2.0) mmol/L Calcium (8.4-10.2) mg/dL Total Bilirubin (0.2-1.3) mg/dL AST (17-59) U/L ALT (4-49) U/L Alkaline Phosphatase (38-126) U/L Total Protein (6.3-8.2) g/dL Albumin (3.5-5.0) g/dL Amylase (30-110) U/L Lipase (23-300) U/L Urine Color Light Yellow Urine Appearance Clear (Clear) Urine pH 5.5 (5.0-8.0) Ur Specific Logan 1.050 H (1.001-1.035) Urine Protein Negative (Negative) Urine Glucose (UA) Negative (Negative) Urine Ketones Negative (Negative) Urine Blood Negative (Negative) Urine Nitrite Negative (Negative) Urine Bilirubin Negative (Negative) Urine Urobilinogen <2.0 (<2.0) mg/dL Ur Leukocyte Esterase Negative (Negative) Disposition Clinical Impression: Inguinal hernia Disposition: HOME SELF-CARE Condition: Good Additional Instructions: Follow-up with your primary care doctor next week to update him on your results from today. Please call Dr. Martin Thursday to schedule an appointment for Thursday. At this time she will discuss surgical options for your hernia repair. Return to the emergency room with any new or concerning symptoms including increased pain, inability to pass gas or have bowel movement. Is patient prescribed a controlled substance at d/c from ED?: No Referrals: Hayden Rodas MD [Primary Care Provider] - 1-2 days Time of Disposition: 09:47
[2021-12-05 07:09] LABS: Basophils # (A) 0.1 k/uL (0-0.2); Basophils % (A) 1 %; Eosinophils # (A) 0.2 k/uL (0-0.7); Eosinophils % (A) 2 %; HCT 49.7 % (39.0-53.0); HGB 16.6 gm/dL (13.0-17.5); Lymphocytes # (A) 1.2 k/uL (1.0-4.8); Lymphocytes % (A) 14 %; MCH 28.7 pg (25.0-35.0); MCHC 33.3 g/dL (31.0-37.0); MCV 86.2 fL (80.0-100.0); Mean Platelet Volume 7.3; Monocytes # (A) 0.5 k/uL (0-1.0); Monocytes % (A) 6 %; Neutrophils # (A) 6.1 k/uL (1.3-7.7); Neutrophils % (A) 75 %; Platelet Count 255 k/uL (150-450); RBC 5.77 m/uL (4.30-5.90); RDW 12.8 % (11.5-15.5); WBC 8.2 k/uL (3.8-10.6)
[2021-12-05 07:22] LABS: ALT 28 U/L (4-49); AST 23 U/L (17-59); African American GFR (CKD) >90 (>60 ml/min/1.73 sqM); Alkaline Phosphatase 70 U/L (38-126); Amylase 64 U/L (30-110); Anion Gap 7 mmol/L; Blood Urea Nitrogen 16 mg/dL (9-20); Calcium 8.5 mg/dL (8.4-10.2); Carbon Dioxide 22 mmol/L (22-30); Chloride 107 mmol/L (98-107); Glucose 154 mg/dL (74-99); Lipase 81 U/L (23-300); Non-African American GFR(CKD) >90 (>60 ml/min/1.73 sqM); Potassium 4.2 mmol/L (3.5-5.1); Sodium 136 mmol/L (137-145); Total Bilirubin 0.9 mg/dL (0.2-1.3); Total Protein 7.1 g/dL (6.3-8.2)
--- NOTE | 2021-12-05 08:58 | CT ---
EXAMINATION TYPE: CT abdomen pelvis w con DATE OF EXAM: 12/05/2021 COMPARISON: CT abdomen and pelvis November 04, 2021 HISTORY: Abdominal pain. Left flank pain into left groin CT DLP: 1443.9 mGycm, Automated Exposure Control for Dose Reduction was Utilized. CONTRAST: CT scan of the abdomen and pelvis is performed without oral but with IV Contrast, patient injected wi th 100 mL of Isovue 300. FINDINGS: LUNG BASES: Bilateral gynecomastia is partially imaged on current study. LIVER/GB: Liver is heterogeneously hypodense consistent with diffuse fatty infiltration. Stable subce ntimeter thin-walled cyst left hepatic lobe axial image 24. PANCREAS: No significant abnormality is seen. SPLEEN: No significant abnormality is seen. ADRENALS: No significant abnormality is seen. KIDNEYS: Satisfactory excretion without concerning renal mass or hydronephrosis. BOWEL: Slightly dilated debris filled distal esophagus on current Study. No suspicious small or large bowel dilatation. PROSTATE/SEMINAL VESICLES: No gross abnormality seen. LYMPH NODES: Mild haziness in the mesentery with prominent but subcentimeter mesenteric lymph nodes t hroughout the mid to lower abdomen greatest left of midline is redemonstrated. OSSEOUS STRUCTURES: No significant abnormality is seen. OTHER: Left inguinal hernia now more moderate in size increased from prior with portion of sigmoid co ann extending into hernia. No suspicious dilatation of bowel to suggest obstruction. Mild fat strandi ng at this level on current study. No free air. IMPRESSION: Left inguinal hernia larger in size from current study with now sigmoid colonic bowel ext ension into the hernia sac and mild fat stranding at this level. No bowel obstruction. Mild fat stran ding however could reflect diminished vascular flow or ischemia to this level given patient's symptom s of left groin pain. Correlate clinically.
[2021-12-05 09:09] LABS: Appearance,Urine Clear (Clear); Bilirubin,Urine Negative (Negative); Blood,Urine Negative (Negative); Color,Urine Light Yellow; Glucose,Urine (UA) Negative (Negative); Ketones,Urine Negative (Negative); Leukocyte Esterase,Urine Negative (Negative); Nitrite,Urine Negative (Negative); PH, Urine 5.5 (5.0-8.0); Protein,Urine Negative (Negative); Urobilinogen,Urine <2.0 mg/dL (<2.0)
--- NOTE | 2021-12-05 09:45 | P.PN ---
Progress Note - Text Progress Note Date: 12/05/21 Discussion with ED includes finding of umbilical and left inguinal hernia. Options for admission with cardiology clearance versus outpatient follow-up in the office discussed with provider.
[2021-12-05] MEDS ORDERED: ACET/COD 300 MG/30 MG STARTER PACK 6 TAB BTL PO STA (09:48)
[2021-12-05 10:05] VITALS: BP 148/101; PULSE 77; TEMP 98.4
== END 2021-12-05 10:05 | disposition home or self-care (01) ==
LOC: EC 05:58
DX: K40.90 Unilateral inguinal hernia, without obstruction or gangrene, not specified as recurrent (principal)
CPT/HCPCS: 36415; 93005; 80053; 82150; 83605; 83690; 85025; 81003; 74177; 99284; 96374; 96375; 96361; 96376; J2405; J1170; Q9967

== ENCOUNTER → 2023-09-25 | Outpatient (CLI) | payer BC ==
--- NOTE | 2023-09-25 20:18 | US ---
EXAMINATION TYPE: US venous doppler duplex LE BI DATE OF EXAM: 09/25/2023 3:55 PM COMPARISON: 11/08/2021. CLINICAL INDICATION: Male, 52 years old with history of M79.605 PAIN IN L LEG M79.604 PAIN IN R LEG I 87.2; Calf pain right worse than left SIDE PERFORMED: Bilateral TECHNIQUE: The lower extremity deep venous system is examined utilizing real time linear array sonog breanna with graded compression, doppler sonography and color-flow sonography. VESSELS IMAGED: Common Femoral Vein Deep Femoral Vein Greater Saphenous Vein * Femoral Vein Popliteal Vein Small Saphenous Vein * Proximal Calf Veins (* superficial vessels) Right Leg: Negative for DVT Left Leg: Negative for DVT IMPRESSION: Grayscale, color doppler, spectral doppler imaging performed of the deep veins of the lo wer extremities. There is normal flow, compressibility, vascular waveforms.
== END | disposition home or self-care (01) ==
LOC: RADUSWWP 15:53
PROVIDERS: ATTEND Family Medicine
DX: I87.2 Venous insufficiency (chronic) (peripheral) (principal); M79.605 Pain in left leg; M79.604 Pain in right leg
CPT/HCPCS: 93970

== ENCOUNTER → 2025-03-01 | Outpatient (CLI) | payer BC ==
--- NOTE | 2025-03-01 15:53 | XR ---
EXAMINATION TYPE: XR chest 2V DATE OF EXAM: 03/01/2025 3:38 PM COMPARISON: None. CLINICAL INDICATION: Male, 54 years old with history of R00.2, R53.83, TECHNIQUE: XR chest 2V view(s) obtained. FINDINGS: The heart size is normal. The pulmonary vasculature is normal. The lungs are clear. IMPRESSION: 1. No acute pulmonary process. [facility], , 03/01/2025 3:51 PM
== END | disposition home or self-care (01) ==
LOC: RADXRMAIN 15:22
PROVIDERS: ATTEND Family Medicine
DX: R00.2 Palpitations (principal); R53.83 Other fatigue
CPT/HCPCS: 71046